=== PATIENT | male | born 1965 | race Caucasian/White ===

== ENCOUNTER 2018-11-18 06:23 | Inpatient (IN) ==
[2018-11-18] MEDS ORDERED: Albuterol 2.5 MG/3 ML NEBULIZER IH ONE (06:45)
[2018-11-18] MEDS ORDERED: CeFAZolin Syr 3,000MG/30 ML 3,000 MG/30 ML SYRINGE IVPB ONE (06:45)
[2018-11-18] MEDS ORDERED: Ringers Solution, Lactated 1,000 ML IVC SCH (06:45)
[2018-11-18] MEDS ORDERED: *HR* Meperidine 25 MG/ML SYRINGE IVP PRN (07:11)
[2018-11-18] MEDS ORDERED: diazePAM 5 MG TABLET PO ONE (07:11)
[2018-11-18] MEDS ORDERED: cloNIDine HCl 0.1 MG TABLET PO ONE (07:11)
[2018-11-18] MEDS ORDERED: Acetaminophen IV 1,000 MG/100 ML INFUS..BTL IVPB ONE (07:11)
[2018-11-18] MEDS ORDERED: *HR* OxyCODONE Immed Rel 5 MG TABLET PO PRN (07:11)
[2018-11-18] MEDS ORDERED: *HR* Propofol 200 MG/20 ML VIAL IVP ONE ×2 (07:11→08:52)
[2018-11-18] MEDS ORDERED: *HR* FentaNYL (PF) 100 MCG/2 ML VIAL ONE ×2 (07:11→09:18)
[2018-11-18] MEDS ORDERED: Ondansetron ODT 4 MG TAB.RAPDIS SL ONE (07:11)
[2018-11-18] MEDS ORDERED: *HR* Promethazine 25 MG/ML VIAL IVP PRN (07:11)
[2018-11-18] MEDS ORDERED: *HR* Midazolam HCl 2 MG/2 ML VIAL IVP PRN (07:11)
[2018-11-18] MEDS ORDERED: *HR* Midazolam HCl 2 MG/2 ML VIAL ONE (07:11)
[2018-11-18] MEDS ORDERED: Lidocaine -MPF 1% 2 ML AMPUL ONE (07:15)
[2018-11-18] MEDS ORDERED: *HR* PHENYLEPHRINE 1,000 MCG/10 ML SYRINGE IVP ONE ×2 (07:37→09:24)
[2018-11-18] MEDS ORDERED: Ondansetron 4 MG/2 ML VIAL ONE (07:37)
[2018-11-18] MEDS ORDERED: Dexamethasone 4 MG/ML VIAL ONE (07:37)
[2018-11-18] MEDS ORDERED: Lidocaine Jelly 6ml 1 APPL/6 ML JEL.PF.APP ONE (07:39)
[2018-11-18] MEDS ORDERED: Ketorolac 30 MG/ML VIAL ONE (08:34)
[2018-11-18] MEDS ORDERED: *HR* Rocuronium Bromide 50 MG/5 ML VIAL ONE (08:53)
[2018-11-18] MEDS ORDERED: Ondansetron 4 MG/2 ML VIAL IVP PRN (09:45)
[2018-11-18] MEDS ORDERED: *HR* HYDROcodone/Acet 5/325 mg TABLET PO PRN (09:45)
[2018-11-18] MEDS ORDERED: Naloxone 0.4 MG/ML INJ IVP PRN (09:45)
[2018-11-18] MEDS: *HR* HYDROmorphone (PF) 1 MG/ML SYRINGE IVP PRN ×6 (09:48→10:35)
[2018-11-18] MEDS: 0.9 % Sodium Chloride 1,000 ML IVC SCH (11:26)
[2018-11-18] MEDS: Ringers Solution, Lactated 1,000 ML IVC SCH (11:26)
[2018-11-18] MEDS: Ketorolac 15 MG/ML VIAL IVP SCH ×2 (11:32→18:07)
[2018-11-18] MEDS: Budesonide/Formoterol 160/4.5 1 PUFF INH IH SCH ×2 (11:36→20:28)
[2018-11-18] MEDS: *HR* Heparin 5,000 UNIT/ML VIAL SQ SCH ×2 (15:32→21:31)
[2018-11-18] MEDS: Gabapentin 400 MG CAPSULE PO SCH ×2 (16:48→21:31)
[2018-11-18] MEDS: *HR* HYDROcodone/Acet 5/325 mg TABLET PO PRN (16:48)
[2018-11-18] MEDS: Famotidine 20 MG TABLET PO SCH (21:31)
[2018-11-18] MEDS: Sennosides/Docusate Sodium TABLET PO SCH (21:31)
[2018-11-19] MEDS: 0.9 % Sodium Chloride 1,000 ML IVC SCH ×2 (00:29→07:15)
[2018-11-19] MEDS: Ketorolac 15 MG/ML VIAL IVP SCH ×2 (00:29→05:19)
[2018-11-19] MEDS: *HR* Heparin 5,000 UNIT/ML VIAL SQ SCH (05:19)
[2018-11-19 05:49] LABS: Hematocrit 44.7 % (37.5-50.1); Hemoglobin 14.8 g/dL (12.9-16.9); Mean Corpuscular HGB Conc 33.1 g/dL (31.6-35.5); Mean Corpuscular Volume 102.8 fL (83.0-100.0); Mean Platelet Volume 10.6 fL (9.4-12.4); Platelet Count 295 K/mcL (140-400); Red Blood Count 4.35 M/mcL (4.19-5.50); Red Cell Distribution Width 14.2 % (11.5-14.5); White Blood Count 19.5 K/mcL (4.3-11.1)
[2018-11-19 06:13] LABS: % Iron Saturation 11 % (20-55); BUN/Creatinine Ratio 20 (6-26); Blood Urea Nitrogen 15 mg/dL (6-20); Carbon Dioxide 27 mEq/L (23-29); Chloride 104 mEq/L (98-107); Glucose 148 mg/dL (70-105); Iron 32 mcg/dL (65-175); Magnesium 2.2 mg/dL (1.6-2.6); Osmolality,Calculated 298 (280-300); Potassium 4.3 mEq/L (3.5-5.1); Sodium 142 mEq/L (136-145); Transferrin 202 mg/dL (203-362); eGFR For African Americans > 60 (> 60); eGFR For Non-African Americans > 60 (> 60)
[2018-11-19 07:25] VITALS: BP 142/94
[2018-11-19] MEDS: Budesonide/Formoterol 160/4.5 1 PUFF INH IH SCH (07:35)
[2018-11-19] MEDS: Famotidine 20 MG TABLET PO SCH (08:11)
[2018-11-19] MEDS: Gabapentin 400 MG CAPSULE PO SCH (08:11)
[2018-11-19] MEDS: Sennosides/Docusate Sodium TABLET PO SCH (08:11)
[2018-11-19] MEDS: *HR* HYDROcodone/Acet 5/325 mg TABLET PO PRN (08:15)
[2018-11-19] MEDS: Ringers Solution, Lactated 1,000 ML IVC SCH (08:16)
[2018-11-19] MEDS ORDERED: Valsartan 160 MG TABLET PO SCH (09:00)
[2018-11-19] MEDS ORDERED: (Roflumilast [Daliresp] 250 MCG) PO SCH (09:00)
[2018-11-19] MEDS ORDERED: Tiotropium 18 MCG inhalation IH SCH (09:00)
[2018-11-19] MEDS ORDERED: Amoxicillin/Clavulanate 500 MG TABLET PO SCH (17:00)
== END 2018-11-19 12:15 | disposition home or self-care (01) | DRG 165 ==
LOC: SAMDAY 06:23 → 2NNU 11:13
PROVIDERS: ADMIT Thoracic Surgery (Cardiothoracic Vascular Surgery); ATTEND Thoracic Surgery (Cardiothoracic Vascular Surgery)